=== PATIENT | male | born 1980 | race Two or more races ===

== ENCOUNTER 2016-10-02 09:13 | Emergency (ER) | payer BC ==
[~2016-10-02] VITALS: Ht 167.6 cm; Wt 72.6 kg
[2016-10-02 09:19] VITALS: BP 136/80
[2016-10-02] MEDS ORDERED: PRED20TA PO (09:50)
[2016-10-02] MEDS ORDERED: CYCL10TA2 PO (09:50)
--- NOTE | 2016-10-02 09:51 | PHYS DOC ---
Past Medical History Past Medical History: Other Additional Past Medical Histor: back pain Past Surgical History: No Surgical History Alcohol Use: None Drug Use: None Adult General Chief Complaint Chief Complaint: LOWER BACK PAIN OR INJURY [facility] HPI Patient is a 36 year old male presents to the emergency department with a history of left lower back pain with radiation of pain into the left leg. Patient states this has been occurring since last night. Patient states he has not taken anything for the pain and discomfort. Patient denies injury or trauma. Denies urinary symptoms. Review of Systems Review of Systems Constitutional: Denies fever or chills [] Eyes: Denies change in visual acuity, redness, or eye pain [] HENT: Denies nasal congestion or sore throat [] Respiratory: Denies cough or shortness of breath [] Cardiovascular: No additional information not addressed in HPI [] GI: Denies abdominal pain, nausea, vomiting, bloody stools or diarrhea [] : Denies dysuria or hematuria [] Musculoskeletal: left lower back pain denies joint pain [] Integument: Denies rash or skin lesions [] Neurologic: Denies headache, focal weakness or sensory changes [] Endocrine: Denies polyuria or polydipsia [] Allergies Allergies Allergies Coded Allergies Type Severity Reaction Last Updated Verified No Known Drug Allergies 10/02/16 No Physical Exam Physical Exam Constitutional: Well developed, well nourished, no acute distress, non-toxic appearance. [] HENT: Normocephalic, atraumatic, bilateral external ears normal, oropharynx moist, no oral exudates, nose normal. [] Eyes: PERRLA, EOMI, conjunctiva normal, no discharge. [] Neck: Normal range of motion, no tenderness, supple, no stridor. [] Cardiovascular:Heart rate regular rhythm, no murmur [] Lungs & Thorax: Bilateral breath sounds clear to auscultation [] Abdomen: Bowel sounds normal, soft, no tenderness, no masses, no pulsatile masses. [] Skin: Warm, dry, no erythema, no rash. [] Back: No thoracic or lumbar spine tenderness noted, no crepitus, no deformities no step-offs noted, no CVA tenderness. Tenderness noted just above the hip area on the left Extremities: No tenderness, no cyanosis, no clubbing, ROM intact, no edema. Peripheral pulses 2+ cap refill brisk < 2 seconds. Neurologic: Alert and oriented X 3, normal motor function, normal sensory function, no focal deficits noted. [] Psychologic: Affect normal, judgement normal, mood normal. [] Current Patient Data Vital Signs Vital Signs Date Time Temp Pulse Resp B/P (MAP) Pulse Ox O2 Delivery O2 Flow Rate FiO2 10/02/16 09:19 97.7 63 20 99 Room Air 97.7 EKG EKG [] Radiology/Procedures Radiology/Procedures [] Course & Med Decision Making Course & Med Decision Making Pertinent Labs and Imaging studies reviewed. (See chart for details) Patient recommended to use Ibuprofen 800 mg ever y 8 hours with food, stop taking if you develop upset stomach, Flexeril for muscle spasm, this medication will cause drowsiness do not take if you need to be alert and oriented. Prednisone will also be provided for patient. Recommended ice packs on 20 minutes and off 20 minutes several times a day. Followup with primary care provider in 5-7 days. Signs and symptoms to return to the emergency department has been provided. Patient agrees with discharge instructions, treatment regimen and followup recommendations. All information including HPI was provided by lcac operator at bedside as patient is [place]ic speaking only. [] Dragon Disclaimer Dragon Disclaimer This electronic medical record was generated, in whole or in part, using a voice recognition dictation system. Departure Departure Impression: Primary Impression: Sciatica of left side Disposition: HOME, SELF-CARE Condition: STABLE Referrals: NO PCP (PCP) Patient Instructions: Sciatica with Rehab-[facility], Sciatica, [id number] Additional Instructions: Activity as tolerated Medication as prescribed Flexeril will cause drowsiness do not take if you need to be alert and oriented Ibuprofen 800 mg every 8 hours with food stop taking if you develop upset stomach Followup with primary care provider in 5-7 days Return to emergency department as needed for signs and symptoms that become worse. Scripts Prednisone (PREDNISONE) 20 Mg Tablet 40 MG PO DAILY for 14 Days, #28 TAB Prov: LEAH MAN APRN 10/02/16 Cyclobenzaprine Hcl (CYCLOBENZAPRINE HCL) 10 Mg Tablet 10 MG PO TID, #30 TAB Prov: LEAH MAN APRN 10/02/16 LEAH MAN APRN Oct 02, 2016 09:51
== END 2016-10-02 09:55 | disposition home or self-care (01) ==
LOC: ER 09:13
DX: M54.42 Lumbago with sciatica, left side (principal)
CPT/HCPCS: 99283